=== PATIENT | male | born 1965 | race Caucasian/White ===

== ENCOUNTER 2018-02-28 00:53 | Emergency (ER) | payer MEDICAID ==
[~2018-02-28] VITALS: Ht 180.3 cm; Wt 70.0 kg
[2018-02-28] MEDS ORDERED: normal saline 1000ML IV soln IV ONE (01:15)
[2018-02-28] MEDS ORDERED: pantoprazole IV 80 MG in normal saline 100ml IV soln 100 ML IV ONE (01:15)
[2018-02-28] MEDS ORDERED: pantoprazole 40 MG vial IV ONE (01:30)
[2018-02-28 01:48] LABS: INR 0.9 INR; PARTIAL THROMBOPLASTIN TIME 29 SECONDS (22-32); PROTHROMBIN TIME 9.8 SECONDS (9.0-12.0)
[2018-02-28 01:54] LABS: BASOPHILS # (AUTO) 0.1 X10'3 (0-0.2); BASOPHILS % (AUTO) 0.6 % (0-1); EOSINOPHILS # (AUTO) 0.1 X10'3 (0-0.9); EOSINOPHILS % (AUTO) 1.4 % (0-6); HEMATOCRIT 44.4 % (42.0-52.0); HEMOGLOBIN 15.4 g/dl (14.0-17.9); LYMPHOCYTES # (AUTO) 1.5 X10'3 (1.1-4.8); LYMPHOCYTES % (AUTO) 14.8 % (21-51); MEAN CORPUSCULAR HEMOGLOBIN 32.3 PG (27.0-31.0); MEAN CORPUSCULAR HGB CONC 34.7 % (33.0-36.5); MEAN CORPUSCULAR VOLUME 93.2 FL (78-98); MEAN PLATELET VOLUME 8.4 FL (7.4-10.4); MONOCYTES # (AUTO) 0.6 X10'3 (0-0.9); MONOCYTES % (AUTO) 5.7 % (2-12); NEUTROPHILS # (AUTO) 7.7 X10'3 (1.8-7.7); NEUTROPHILS % (AUTO) 77.5 % (42-75); PLATELET COUNT 146 X10'3 (140-440); RED BLOOD COUNT 4.76 X10'6 (4.70-6.10); RED CELL DISTRIBUTION WIDTH 13.8 % (11.5-14.5)
[2018-02-28 01:56] VITALS: BP 129/75
[2018-02-28 02:00] LABS: ALANINE AMINOTRANSFERASE 34 U/L (12-78); ALBUMIN 3.7 G/DL (3.4-5.0); ALBUMIN/GLOBULIN RATIO 1.2 (1.1-1.5); ALKALINE PHOSPHATASE 92 IU/L (46-116); ANION GAP 11 (8-16); ASPARTATE AMINO TRANSFERASE 24 U/L (10-37); BILIRUBIN,TOTAL 0.3 MG/DL (0.1-1.0); BLOOD UREA NITROGEN 9 MG/DL (7-18); BUN/CREATININE RATIO 11.1 (5.4-32.0); CALCIUM 8.4 MG/DL (8.5-10.1); CHLORIDE 104 MMOL/L (99-107); CREATININE 0.81 MG/DL (0.60-1.10); GLUCOSE 93 MG/DL (70-104); POTASSIUM 3.8 MMOL/L (3.5-5.1); SODIUM 143 MMOL/L (135-145); TOTAL CARBON DIOXIDE 28.2 MMOL/L (24-32); TOTAL PROTEIN 6.9 G/DL (6.4-8.2); eGFR > 90 ML/MIN
[2018-02-28 02:04] LABS: ACETAMINOPHEN < 2.0 UG/ML (10-30)
[2018-02-28 02:44] LABS: OCCULT BLOOD STOOL NEGATIVE (Neg)
[2018-02-28 02:47] LABS: CLARITY,URINE CLEAR (Clear); COLOR,URINE YELLOW (Yellow); GLUCOSE, URINE NEGATIVE (Neg); KETONES,URINE NEGATIVE (Neg); LEUKOCYTE ESTERASE ,URINE NEGATIVE (Neg); NITRITES, URINE NEGATIVE (Neg); OCCULT BLOOD,URINE NEGATIVE (Neg); PH,URINE 6.5 (4.8-8.0); PROTEIN,URINE NEGATIVE (Neg); UA COLLECTION TYPE CLN CATCH MIDSTREAM; UROBILINOGEN,URINE 0.2 E.U/dL (0.2-1.0)
[2018-02-28 02:51] LABS: URINE CANNABINOID SCREEN NEGATIVE (Neg); URINE COCAINE SCREEN NEGATIVE (Neg); URINE METHADONE SCREEN NEGATIVE (Neg); URINE PHENCYCLIDINE SCREEN NEGATIVE (Neg)
[2018-02-28 02:57] LABS: URINE AMPHETAMINE SCREEN NEGATIVE (Neg); URINE BARBITUATE SCREEN NEGATIVE (Neg)
[2018-02-28 02:58] LABS: URINE BENZODIAZEPINES SCREEN NEGATIVE (Neg); URINE OPIATE SCREEN NEGATIVE (Neg)
== END 2018-02-28 02:33 | disposition home or self-care (01) ==
LOC: ER 00:53
DX: R11.10 Vomiting, unspecified (principal); R10.84 Generalized abdominal pain; J45.909 Unspecified asthma, uncomplicated; F17.200 Nicotine dependence, unspecified, uncomplicated
CPT/HCPCS: 36415; 71045; 80053; 80305; 80320; 80329; 81003; 82272; 84443; 85025; 85610; 85730; 86885; 86900; 86901; 93005; 96361; 96374; 99285; C9113; J7030

== ENCOUNTER 2020-02-17 23:23 | Emergency (ER) | payer MEDICAID ==
[~2020-02-17] VITALS: Ht 180.3 cm; Wt 106.8 kg
[2020-02-18 00:09] LABS: BASOPHILS # (AUTO) 0.1 X10'3 (0-0.2); BASOPHILS % (AUTO) 1.1 % (0-1); EOSINOPHILS # (AUTO) 0.1 X10'3 (0-0.9); EOSINOPHILS % (AUTO) 0.9 % (0-6); HEMATOCRIT 44.9 % (42.0-52.0); HEMOGLOBIN 15.5 g/dl (14.0-17.9); LYMPHOCYTES % (AUTO) 28.5 % (21-51); MEAN CORPUSCULAR HEMOGLOBIN 32.4 PG (27.0-31.0); MEAN CORPUSCULAR HGB CONC 34.4 g/dL (33.0-36.5); MEAN CORPUSCULAR VOLUME 94.3 FL (78-98); MEAN PLATELET VOLUME 7.6 FL (7.4-10.4); MONOCYTES # (AUTO) 0.6 X10'3 (0-0.9); MONOCYTES % (AUTO) 8.7 % (2-12); NEUTROPHILS # (AUTO) 4.3 X10'3 (1.8-7.7); NEUTROPHILS % (AUTO) 60.8 % (42-75); PLATELET COUNT 180 X10'3 (140-440); RED BLOOD COUNT 4.76 X10'6 (4.70-6.10); RED CELL DISTRIBUTION WIDTH 14.8 % (11.5-14.5); WHITE BLOOD COUNT 7.1 X10'3 (4.5-11.0)
[2020-02-18] MEDS ORDERED: ABAC1TAB14 PO (00:13)
[2020-02-18] MEDS ORDERED: ibuprofen PO (00:15)
[2020-02-18] MEDS ORDERED: ATOR10TA87 PO (00:15)
[2020-02-18] MEDS ORDERED: OLANZapine 2.5MG tablet PO STA (00:19)
[2020-02-18 00:36] LABS: ALANINE AMINOTRANSFERASE 40 U/L (12-78); ALBUMIN/GLOBULIN RATIO 1.3 (1.1-1.5); ALKALINE PHOSPHATASE 82 IU/L (46-116); ANION GAP 7 (8-16); ASPARTATE AMINO TRANSFERASE 45 U/L (10-37); BILIRUBIN,TOTAL 0.7 MG/DL (0.1-1.0); BLOOD UREA NITROGEN 10 MG/DL (7-18); BUN/CREATININE RATIO 11.9 (5.4-32.0); CALCIUM 9.1 MG/DL (8.5-10.1); CHLORIDE 104 MMOL/L (99-107); CREATININE 0.84 MG/DL (0.60-1.10); GLUCOSE 83 MG/DL (70-104); POTASSIUM 3.3 MMOL/L (3.5-5.1); SODIUM 141 MMOL/L (135-145); TOTAL CARBON DIOXIDE 29.7 MMOL/L (24-32); TOTAL PROTEIN 7.1 G/DL (6.4-8.2); eGFR > 90 ML/MIN
[2020-02-18] MEDS ORDERED: ibuprofen tablet 400 MG TABLET PO ONE (00:45)
[2020-02-18 00:46] LABS: ETHANOL < 0.010 GM/DL (0.0-0.010)
[2020-02-18 01:19] LABS: URINE AMPHETAMINE SCREEN POSITIVE (Neg); URINE BARBITUATE SCREEN NEGATIVE (Neg); URINE BENZODIAZEPINES SCREEN POSITIVE (Neg); URINE CANNABINOID SCREEN POSITIVE (Neg); URINE COCAINE SCREEN NEGATIVE (Neg); URINE METHADONE SCREEN NEGATIVE (Neg); URINE OPIATE SCREEN NEGATIVE (Neg); URINE PHENCYCLIDINE SCREEN NEGATIVE (Neg)
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
[2020-02-18] MEDS ORDERED: IBUP-1984 PO (08:04)
--- NOTE | 2020-02-18 08:30 | NUR ---
Urine collected for U/A. Pt. in bed and appears to be sleeping. Normal R&R of respirations noted.
[2020-02-18] MEDS ORDERED: ibuprofen tablet 400 MG TABLET PO PRN (08:35)
[2020-02-18] MEDS ORDERED: atorvastatin 10mg tablet PO SCH (08:38)
[2020-02-18 08:39] LABS: CLARITY,URINE CLEAR (Clear); COLOR,URINE YELLOW (Yellow); GLUCOSE, URINE NEGATIVE (Neg); KETONES,URINE 40 mg/dl (Neg); LEUKOCYTE ESTERASE ,URINE NEGATIVE (Neg); NITRITES, URINE NEGATIVE (Neg); OCCULT BLOOD,URINE TRACE-INTACT (Neg); PROTEIN,URINE NEGATIVE (Neg); UA COLLECTION TYPE CLN CATCH MIDSTREAM; UROBILINOGEN,URINE 0.2 E.U/dL (0.2-1.0)
[2020-02-18] MEDS ORDERED: DOLUTEGRAVIR PO SCH (08:40)
[2020-02-18] MEDS ORDERED: LAMIVUDI PO SCH (08:40)
[2020-02-18] MEDS ORDERED: ABACAVIR PO SCH (08:40)
[2020-02-18 08:45] LABS: MUCUS STRANDS MANY /LPF (Neg); SQUAMOUS EPITHELIAL CELL,UR MANY /LPF (FEW)
[2020-02-18 08:48] LABS: RBC,URINE 0-2 /HPF (0-2)
[2020-02-18 08:49] LABS: BACTERIA,URINE FEW /HPF (Neg); TRANSITIONAL EPI CELLS,URINE FEW /HPF
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
[2020-02-18] MEDS ORDERED: albuterol 2.5 MG/3 ML nebule NEB PRN (10:40)
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
--- NOTE | 2020-02-18 12:45 | NUR ---
Pt.'s belongings found and pt. was relieved. Pt eating a sandwich at bedside.
--- NOTE | 2020-02-18 14:30 | NUR ---
Pt. sleeping at bedside. Normal R&R of respirations observed.
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
[2020-02-18 17:12] VITALS: BP 122/73
--- NOTE | 2020-02-18 18:21 | NUR ---
Pt. ate dinner and laying down. Pt. in no apparent emotional or psychological distress. RN gave SBAR report to PONCHO Levine.
--- NOTE | 2020-02-18 19:33 | NUR ---
pt is sleeping on his back. no s/s of distress noted.
== END 2020-02-18 21:00 ==
LOC: ER 23:24
DX: F20.9 Schizophrenia, unspecified (principal); R45.851 Suicidal ideations; F15.10 Other stimulant abuse, uncomplicated; J45.909 Unspecified asthma, uncomplicated; Z88.8 Allergy status to other drugs, medicaments and biological substances
CPT/HCPCS: 36415; 80053; 80305; 80320; 81001; 84443; 85025; 94640; 94760; 99285

== ENCOUNTER 2022-11-07 21:54 | Emergency (ER) | payer MEDICAID ==
[~2022-11-07] VITALS: Ht 180.3 cm; Wt 84.1 kg
[~2022-11-07 21:54] MED LIST: ABAC1TAB14 PO; ASPI-1265 PO; ATOR10TA87 PO; HYDR-3686 PO; IBUP-1984 PO; OLAN10TA73 PO; OLAN5TAB75 PO; TERB250T89 PO
[2022-11-07 23:07] LABS: BASOPHILS # (AUTO) 0.1 X10'3 (0-0.2); BASOPHILS % (AUTO) 0.7 % (0-1); EOSINOPHILS # (AUTO) 0.1 X10'3 (0-0.9); EOSINOPHILS % (AUTO) 0.6 % (0-6); HEMATOCRIT 44.5 % (42.0-52.0); HEMOGLOBIN 15.3 g/dl (14.0-17.9); LYMPHOCYTES # (AUTO) 2.4 X10'3 (1.1-4.8); LYMPHOCYTES % (AUTO) 24.6 % (21-51); MEAN CORPUSCULAR HEMOGLOBIN 31.4 PG (27.0-31.0); MEAN CORPUSCULAR HGB CONC 34.4 g/dL (33.0-36.5); MEAN CORPUSCULAR VOLUME 91.3 FL (78-98); MEAN PLATELET VOLUME 7.1 FL (7.4-10.4); MONOCYTES # (AUTO) 0.6 X10'3 (0-0.9); MONOCYTES % (AUTO) 6.6 % (2-12); NEUTROPHILS # (AUTO) 6.7 X10'3 (1.8-7.7); NEUTROPHILS % (AUTO) 67.5 % (42-75); PLATELET COUNT 207 X10'3 (140-440); RED BLOOD COUNT 4.88 X10'6 (4.70-6.10); RED CELL DISTRIBUTION WIDTH 15.5 % (11.5-14.5); WHITE BLOOD COUNT 9.9 X10'3 (4.5-11.0)
[2022-11-07 23:24] LABS: ALANINE AMINOTRANSFERASE 24 U/L (12-78); ALBUMIN 3.4 G/DL (3.4-5.0); ALBUMIN/GLOBULIN RATIO 0.9 (1.1-1.5); ALKALINE PHOSPHATASE 94 IU/L (46-116); ANION GAP 11 (8-16); ASPARTATE AMINO TRANSFERASE 29 U/L (10-37); BILIRUBIN,TOTAL 0.3 MG/DL (0.1-1.0); BLOOD UREA NITROGEN 26 MG/DL (7-18); BUN/CREATININE RATIO 34.7 (5.4-32.0); CALCIUM 8.6 MG/DL (8.5-10.1); CHLORIDE 103 MMOL/L (99-107); CREATININE 0.75 MG/DL (0.60-1.10); ETHANOL 0.052 GM/DL (0.0-0.010); GLUCOSE 110 MG/DL (70-104); POTASSIUM 3.5 MMOL/L (3.5-5.1); SODIUM 140 MMOL/L (135-145); TOTAL CARBON DIOXIDE 25.9 MMOL/L (24-32); TOTAL PROTEIN 7.1 G/DL (6.4-8.2); eGFR > 90 ML/MIN
[2022-11-07] MEDS ORDERED: OLANZapine 2.5MG tablet PO SCH (23:50)
[2022-11-08] MEDS: bacitracin 15gm ointment TP PRN (01:15)
[2022-11-08 01:32] LABS: CLARITY,URINE CLEAR (Clear); COLOR,URINE YELLOW (Yellow); GLUCOSE, URINE NEGATIVE (Neg); KETONES,URINE NEGATIVE (Neg); LEUKOCYTE ESTERASE ,URINE NEGATIVE (Neg); NITRITES, URINE NEGATIVE (Neg); OCCULT BLOOD,URINE TRACE-INTACT (Neg); PH,URINE 5.5 (4.8-8.0); PROTEIN,URINE NEGATIVE (Neg); UROBILINOGEN,URINE 0.2 E.U/dL (0.2-1.0)
[2022-11-08 01:45] LABS: BACTERIA,URINE FEW /HPF (Neg); RBC,URINE 0-2 /HPF (0-2); SQUAMOUS EPITHELIAL CELL,UR FEW /LPF (FEW); UA COLLECTION TYPE VOIDED; WBC,URINE 0-4 /HPF (0-4)
[2022-11-08 01:46] LABS: MUCUS STRANDS FEW /LPF (Neg)
[2022-11-08 02:29] LABS: URINE AMPHETAMINE SCREEN POSITIVE (Neg); URINE BARBITUATE SCREEN NEGATIVE (Neg); URINE BENZODIAZEPINES SCREEN NEGATIVE (Neg); URINE CANNABINOID SCREEN POSITIVE (Neg); URINE COCAINE SCREEN NEGATIVE (Neg); URINE METHADONE SCREEN NEGATIVE (Neg); URINE OPIATE SCREEN NEGATIVE (Neg); URINE PHENCYCLIDINE SCREEN NEGATIVE (Neg)
--- NOTE | 2022-11-08 16:47 | NUR ---
PATEINT SLEEPING. NO CHANGE IN CONDITION.
[2022-11-08] MEDS: LAMIVUDI PO SCH (19:09)
[2022-11-08] MEDS: DOLUTEGRAVIR PO SCH (19:09)
[2022-11-08] MEDS: ABACAVIR PO SCH (19:09)
[2022-11-08] MEDS ORDERED: gabapentin 400mg capsule PO SCH (19:30)
--- NOTE | 2022-11-08 19:37 | NUR ---
One to one with the patient. He has been sleeping and asking for additonal food items. He was irritable during the assessment but cooperative with answering questions. He is complaining of neuropathy pain 10/10. Stated he has been on gabapentin in the past but not for some time. The patient is distraught and stated he doesn't want to live. He stated that he does not want to return to [place] where he lives and wants to be placed in a half-way. Discussed patient complaint of neuropathy pain with Dr. Jean Baptiste and orders received.
[2022-11-08] MEDS: gabapentin 100mg capsule PO SCH (20:04)
--- NOTE | 2022-11-08 21:05 | NUR ---
The patient appears to be sleeping
--- NOTE | 2022-11-08 22:49 | NUR ---
The patient appears to be sleeping
--- NOTE | 2022-11-09 00:12 | NUR ---
The patient appears to be sleeping
--- NOTE | 2022-11-09 02:02 | NUR ---
The patient appears to be sleeping
--- NOTE | 2022-11-09 04:33 | NUR ---
The patient appears to be sleeping
--- NOTE | 2022-11-09 05:13 | NUR ---
The patient is awake and resting on his bed
[2022-11-09 05:48] VITALS: BP 118/80
[2022-11-09] MEDS: LAMIVUDI PO SCH (08:07)
[2022-11-09] MEDS: DOLUTEGRAVIR PO SCH (08:07)
[2022-11-09] MEDS: ABACAVIR PO SCH (08:07)
[2022-11-09] MEDS: bacitracin 15gm ointment TP PRN (08:21)
[2022-11-09] MEDS: gabapentin 100mg capsule PO SCH ×2 (08:21→13:00)
--- NOTE | 2022-11-09 08:30 | NUR ---
PATIENT ATE BREAKFAST AND IS RESTING QUIETLY IN BED. NO COMPLAINTS AT THIS TIME.
== END 2022-11-09 17:42 ==
LOC: ER 21:54
DX: R45.851 Suicidal ideations (principal); Z20.822 Contact with and (suspected) exposure to COVID-19; Z88.8 Allergy status to other drugs, medicaments and biological substances; Z79.1 Long term (current) use of non-steroidal anti-inflammatories (NSAID); Z79.2 Long term (current) use of antibiotics
CPT/HCPCS: 36415; 80053; 80305; 80320; 81001; 84443; 85025; 87811; 99285

== ENCOUNTER 2023-03-01 19:31 | Emergency (ER) | payer MEDICAID ==
[~2023-03-01] VITALS: Ht 180.3 cm; Wt 79.5 kg
[~2023-03-01 19:31] MED LIST changes: -ASPI-1265 PO; -HYDR-3686 PO; -IBUP-1984 PO; -OLAN10TA73 PO; -OLAN5TAB75 PO; -TERB250T89 PO
[2023-03-01 19:56] VITALS: BP 140/74
== END 2023-03-01 22:43 | disposition left against medical advice (07) ==
LOC: ER 19:33
DX: R45.851 Suicidal ideations (principal); Z53.21 Procedure and treatment not carried out due to patient leaving prior to being seen by health care provider
CPT/HCPCS: 99281